=== PATIENT | male | born 1955 | race American Indian/Alaskan Native ===

== ENCOUNTER 2017-07-16 12:30 | Inpatient (IN) | payer MEDICARE ==
[2017-07-16] MEDS ORDERED: NACL 0.9% 1000 ML 1,000 ML IV ONE ×2 (13:35→14:06)
[2017-07-16] MEDS ORDERED: NACL 0.9% 1000 ML 1,000 ML ONE (13:37)
[2017-07-16] MEDS ORDERED: MORPHINE IV ONE ×2 (14:21→16:26)
[2017-07-16] MEDS ORDERED: ZOFRAN IV ONE (14:21)
--- NOTE | 2017-07-16 14:25 | Emergency Department Report ---
ED GI Bleed HPI - General Chief complaint: GI Bleed Stated complaint: ABD PAIN Time Seen by Provider: 07/16/17 13:55 Source: patient, EMS Mode of arrival: Wheelchair Limitations: No Limitations - History of Present Illness Initial comments: Patient is 62 years old male history of diabetes Jonas today with rectal bleeding for the last 2 days and a low blood pressure over 77/42. Patient stated that he's been having blood per rectum for the last 2 days associated with epigastric abdominal pain. Patient denied any vomiting blood. He stated that he does not remember the last time he had a colonoscopy or endoscopy. Denied any recent use of NSAID. MD complaint: blood on toilet paper -: days(s) Location: epigastric Quality: cramping Consistency: intermittent Associated Symptoms: abdominal pain - Related Data Home Medications Medication Instructions Recorded Confirmed Last Taken Acetaminophen [Acetaminophen TAB] 500 mg PO BID PRN 09/05/14 07/16/17 04/11/16 09:00 oxyCODONE /ACETAMINOPHEN 10 mg PO BID PRN 04/13/16 07/16/17 Unknown Aspirin 81 mg PO DAILY 04/25/17 07/16/17 04/25/17 AtorvaSTATin 1 tab PO DAILY 04/25/17 07/16/17 04/25/17 Clopidogrel [Plavix] 75 mg PO QDAY 04/25/17 07/16/17 Unknown Famotidine [Pepcid] 20 mg PO BID 04/25/17 07/16/17 Unknown Gabapentin [Gralise] 300 mg PO DAILY 04/25/17 07/16/17 04/25/17 Insulin Glargine,Hum.rec.anlog 24 unit SQ DAILY 04/25/17 07/16/17 Unknown [Lantus Solostar] Isosorbide Mononitrate 30 mg PO DAILY 04/25/17 07/16/17 Unknown Levothyroxine [Synthroid] 25 mcg PO QAM 04/25/17 07/16/17 Unknown Lisinopril [Zestril TAB] 10 mg PO QDAY 04/25/17 07/16/17 Unknown Nitroglycerin [Nitrostat] 0.4 mg SL PRN PRN 04/25/17 07/16/17 Unknown glipiZIDE [Glucotrol] 10 mg PO QDAY 09/04/17 11/25/17 Unknown Previous Rx's Medication Instructions Recorded Last Taken Type Ondansetron [Zofran Odt] 8 mg PO TID PRN #14 tab.rapdis 09/05/14 04/11/16 09:00 Rx ALBUTEROL Inhaler [ProAir HFA 2 puff IH QID PRN #1 inhalation 09/10/14 04/11/16 09:00 Rx Inhaler] Aspirin [Aspirin BABY CHEW TAB] 81 mg PO QDAY #30 tab.chew 09/10/14 04/11/16 09: 00 Rx Budesoni/Formotero 160-4.5(Nf) 2 puff IH BID #1 inha 09/10/14 04/11/16 09:00 Rx [Symbicort 160-4.5 (Nf)] Clopidogrel [Plavix] 75 mg PO QDAY #30 tablet 09/10/14 04/11/16 09:00 Rx Isosorbide Mononitrate [Isosorbide 60 mg PO QDAY #30 tab.er.24h 09/10/14 09:00 Rx Mononitrate ER (IMDUR)] Metoprolol [Lopressor TAB] 25 mg PO BID #60 tablet 09/10/14 04/11/16 09:00 Rx Rosuvastatin (Nf) [Crestor] 20 mg PO QHS #30 tablet 09/10/14 04/11/16 09:00 Rx Omeprazole [PriLOSEC] 20 mg PO BID #60 capsule. 09/21/14 04/11/16 09:00 Rx Pen Needle, Diabetic [Pen Needle] 1 each HS #100 dis.needle 04/14/16 Unknown Rx AtorvaSTATin [Lipitor] 40 mg PO QHS tablet 04/27/17 Unknown Rx Gabapentin [Neurontin] 300 mg PO DAILY capsule 04/27/17 Unknown Rx Insulin Detemir [Levemir] 30 units SUB-Q QHS units 04/27/17 Unknown Rx Insulin Glargine,Hum.rec.anlog 30 units SQ QHS #5 pen 04/27/17 Unknown Rx [Lantus Solostar] Insulin Regular, Human [HumuLIN R] 0 units SUB-Q ACHS units 04/27/17 Unknown Rx Pantoprazole [Protonix TAB] 20 mg PO BID tablet. 04/27/17 Unknown Rx oxyCODONE /ACETAMINOPHEN [Percocet 1 tab PO Q6HR PRN #14 tablet 04/27/17 Unknown Rx 5/325] Allergies Allergy/AdvReac Type Severity Reaction Status Date / Time No Known Allergies Allergy Verified 09/07/14 06:49 ED Review of Systems ROS: Stated complaint: ABD PAIN Other details as noted in HPI Comment: All other systems reviewed and negative Constitutional: denies: chills, fever ENT: denies: throat pain Cardiovascular: denies: chest pain, palpitations, dyspnea on exertion, orthopnea Gastrointestinal: abdominal pain, hematochezia. denies: nausea, vomiting, diarrhea, constipation, hematemesis, melena Neurological: denies: headache, weakness, numbness, paresthesias ED Past Medical Hx - Past Medical History Hx Hypertension: Yes Hx CVA: Yes (unknown) Hx Heart Attack/AMI: Yes Hx Congestive Heart Failure: No Hx Diabetes: Yes Hx Deep Vein Thrombosis: No Hx Pulmonary Embolism: No Hx GERD: Yes Hx Liver Disease: No Hx Renal Disease: No Hx Sickle Cell Disease: No Hx Arthritis: No Hx Headaches / Migraines: No Hx Seizures: No Hx Kidney Stones: No Hx Psychiatric Treatment: No Hx Asthma: Yes Hx COPD: Yes Hx Tuberculosis: No Hx Dementia: No Hx HIV: No Additional medical history: high cholest, CAD, gastritis, recurrent abdominal pain - Surgical History Hx Coronary Stent: Yes Hx Open Heart Surgery: Yes Hx Pacemaker: No Hx Internal Defibrillator: No Hx Cholecystectomy: No Hx Appendectomy: No Hx Breast Surgery: No Additional Surgical History: hernia surg x 3, peptic ulcer disease surgery - Social History Smoking Status: Current Every Day Smoker - Medications Home Medications: Home Medications Medication Instructions Recorded Confirmed Last Taken Type Acetaminophen [Acetaminophen TAB] 500 mg PO BID PRN 09/05/14 07/16/17 04/11/16 09:00 History Ondansetron [Zofran Odt] 8 mg PO TID PRN #14 tab.rapdis 09/05/14 07/16/17 09:00 Rx ALBUTEROL Inhaler [ProAir HFA 2 puff IH QID PRN #1 inhalation 09/10/14 07/16/17 04/11/16 09:00 Rx Inhaler] Aspirin [Aspirin BABY CHEW TAB] 81 mg PO QDAY #30 tab.chew 09/10/14 07/16/1716 09:00 Rx Budesoni/Formotero 160-4.5(Nf) 2 puff IH BID #1 inha 09/10/14 07/16/17 04/11/16 09:00 Rx [Symbicort 160-4.5 (Nf)] Clopidogrel [Plavix] 75 mg PO QDAY #30 tablet 09/10/14 07/16/17 04/11/16 09:00 Rx Isosorbide Mononitrate [Isosorbide 60 mg PO QDAY #30 tab.er.24h 09/10/1404/11/16 09:00 Rx Mononitrate ER (IMDUR)] Metoprolol [Lopressor TAB] 25 mg PO BID #60 tablet 09/10/14 07/16/17 04/11/16 09 :00 Rx Rosuvastatin (Nf) [Crestor] 20 mg PO QHS #30 tablet 09/10/14 07/16/17 04/11/16 09:00 Rx Omeprazole [PriLOSEC] 20 mg PO BID #60 capsule.dr 09/21/14 07/16/17 04/11/16 09: 00 Rx oxyCODONE /ACETAMINOPHEN 10 mg PO BID PRN 04/13/16 07/16/17 Unknown History Pen Needle, Diabetic [Pen Needle] 1 each HS #100 dis.needle 04/14/16 Unknown Rx Aspirin 81 mg PO DAILY 04/25/17 07/16/17 04/25/17 History AtorvaSTATin 1 tab PO DAILY 04/25/17 07/16/17 04/25/17 History Clopidogrel [Plavix] 75 mg PO QDAY 04/25/17 07/16/17 Unknown History Famotidine [Pepcid] 20 mg PO BID 04/25/17 07/16/17 Unknown History Gabapentin [Gralise] 300 mg PO DAILY 04/25/17 07/16/17 04/25/17 History Insulin Glargine,Hum.rec.anlog 24 unit SQ DAILY 04/25/17 07/16/17 Unknown History [Lantus Solostar] Isosorbide Mononitrate 30 mg PO DAILY 04/25/17 07/16/17 Unknown History Levothyroxine [Synthroid] 25 mcg PO QAM 04/25/17 07/16/17 Unknown History Lisinopril [Zestril TAB] 10 mg PO QDAY 04/25/17 07/16/17 Unknown History Nitroglycerin [Nitrostat] 0.4 mg SL PRN PRN 04/25/17 07/16/17 Unknown History glipiZIDE [Glucotrol] 10 mg PO QDAY 04/25/17 07/16/17 Unknown History AtorvaSTATin [Lipitor] 40 mg PO QHS tablet 04/27/17 07/16/17 Unknown Rx Gabapentin [Neurontin] 300 mg PO DAILY capsule 04/27/17 07/16/17 Unknown Rx Insulin Detemir [Levemir] 30 units SUB-Q QHS units 04/27/17 07/16/17 Unknown Rx Insulin Glargine,Hum.rec.anlog 30 units SQ QHS #5 pen 04/27/17 07/16/17 Unknown Rx [Lantus Solostar] Insulin Regular, Human [HumuLIN R] 0 units SUB-Q ACHS units 04/27/17 07/16/17 Unknown Rx Pantoprazole [Protonix TAB] 20 mg PO BID tablet. 04/27/17 07/16/17 Unknown Rx oxyCODONE /ACETAMINOPHEN [Percocet 1 tab PO Q6HR PRN #14 tablet 04/27/17 Unknown Rx 5/325] ED Physical Exam - General Limitations: No Limitations General appearance: alert, in no apparent distress - Head Head exam: Present: atraumatic, normocephalic - Eye Eye exam: Present: normal appearance, PERRL - ENT ENT exam: Present: mucous membranes dry - Neck Neck exam: Present: normal inspection, full ROM. Absent: tenderness, meningismus - Respiratory Respiratory exam: Present: normal lung sounds bilaterally. Absent: respiratory distress, wheezes, rales, rhonchi, stridor, accessory muscle use - Cardiovascular Cardiovascular Exam: Present: tachycardia - GI/Abdominal GI/Abdominal exam: Present: soft, tenderness (epigastric), normal bowel sounds. Absent: distended, guarding, rigid, diminished bowel sounds, organomegaly, mass, bruit, pulsatile mass, hernia - Rectal Rectal exam: Present: normal inspection, normal rectal tone, heme (+) stool. Absent: black stool, bloody stool, fecal impaction, hemorrhoids, mass, tenderness - Extremities Exam Extremities exam: Present: normal inspection, normal capillary refill. Absent: full ROM, tenderness, pedal edema, joint swelling, calf tenderness - Back Exam Back exam: Present: normal inspection. Absent: CVA tenderness (R), CVA tenderness (L), muscle spasm, paraspinal tenderness, vertebral tenderness - Neurological Exam Neurological exam: Present: alert, oriented X3, CN II-XII intact, normal gait. Absent: abnormal gait, motor sensory deficit, reflexes normal - Skin Skin exam: Present: warm, dry, intact ED Course Vital Signs 07/16/17 07/16/17 07/16/17 13:29 13:37 13:45 Temperature 98.4 F Pulse Rate 103 H 97 H 94 H Respiratory 18 19 15 Rate Blood Pressure 70/44 96/60 88/61 Blood Pressure [Left] O2 Sat by Pulse 100 98 Oximetry 07/16/17 07/16/17 07/16/17 14:00 14:15 16:26 Temperature Pulse Rate 85 80 74 Respiratory 14 18 16 Rate Blood Pressure 94/60 112/68 Blood Pressure 125/80 [Left] O2 Sat by Pulse 100 96 Oximetry - Reevaluation(s) Reevaluation #1: 07/16/17 16:46 Patient stating that he is feeling better his blood pressure improved significantly currently is 120/80. ED Medical Decision Making - Lab Data Result diagrams: 07/16/17 14:10 07/16/17 14:10 - Medical Decision Making Discussed the patient with Dr. Kareem Morales from [facility]-he advised to admit the patient to the hospitalist and he will follow up with the patient. Discussed with Dr. Jaime presented the patient to him he agreed to admit the patient to his service. Critical Care Time: Yes Critical care time in (mins) excluding proc time.: 35 Critical care attestation.: If time is entered above; I have spent that time in minutes in the direct care of this critically ill patient, excluding procedure time. ED Disposition Clinical Impression: GI bleed Abdominal pain Qualifiers: Abdominal location: lower abdomen, unspecified Qualified Code(s): R10.30 - Lower abdominal pain, unspecified Disposition: OP ADMIT IP TO THIS HOSP Is pt being admited?: Yes Condition: Stable Referrals: PRIMARY CARE, [Primary Care Provider] - 3-5 Days Forms: Accompanied Note
[2017-07-16 14:46] LABS: Basophils % (Auto) 0.7 % (0.0-1.8); Eosinophils % (Auto) 2.3 % (0.0-4.3); Hematocrit 38.1 % (35.5-45.6); Hemoglobin 12.7 gm/dl (11.8-15.2); Mean Corpuscular HGB Conc 33 % (32-34); Mean Corpuscular Hemoglobin 29 pg (28-32); Mean Corpuscular Volume 88 fl (84-94); Platelet Count 255 K/mm3 (140-440); Red Blood Count 4.32 M/mm3 (3.65-5.03); Red Cell Distribution Width 14.2 % (13.2-15.2); White Blood Count 5.5 K/mm3 (4.5-11.0)
[2017-07-16 14:50] LABS: Alanine Aminotransferase 9 units/L (7-56); Albumin 3.8 g/dL (3.9-5); Alkaline Phosphatase 63 units/L (35-129); Anion Gap 20 mmol/L; BUN/Creatinine Ratio 11; Blood Urea Nitrogen 15 mg/dL (9-20); Calcium 9.2 mg/dL (8.4-10.2); Carbon Dioxide 23 mmol/L (22-30); Chloride 94.5 mmol/L (98-107); Glucose 244 mg/dL (75-100); Lipase 36 units/L (13-60); Potassium 4.2 mmol/L (3.6-5.0); Sodium 133 mmol/L (137-145); Total Protein 7.7 g/dL (6.3-8.2)
[2017-07-16 14:56] LABS: INR 1.03 (0.87-1.13)
[2017-07-16 14:57] LABS: Partial Thromboplastin Time 31.3 Sec. (24.2-36.6)
--- NOTE | 2017-07-16 16:33 | History and Physical Report ---
History of Present Illness Chief complaint: my stomach hurts, and I have blood in my stool History of present illness: 62 YO Male with HTN, HI, DM, GERD, Asthma, COPD, HLD, Nicotine Dependence, CAD S /P CABG, Stent placement, Metabolic Syndrome, PUD, Gastritis presents to ED for evaluation. Pt states that he has experienced abdominal pain and rectal bleeding for the past 2 days, with persistent symptoms over the same time period. Pt states that pain in 3-5/10, epigastric in location, intermittent, cramping, nonradiating, and is associated with nausea, but denies vomiting and diarrhea but acknkowledges blood in his stool. Pt seen and evaluated in ED and found to have a blood pressure of 77/42, and was treated with supportive care, IVF, with normalization of blood pressure. PT denies fever, chills, CP, Palpitations, Trauma, NSAID use, unintentional weight loss, night sweats, bone pain, pain upon swallowing, or recent ill contacts. GI consulted in ED Past History Past Medical History: acute HI, CAD, diabetes, hypertension, hyperlipidemia, other (PUD) Past Surgical History: CABG, hernia repair, Other (Stent, PUD surgery) Social history: single, smoking. denies: alcohol abuse, prescription drug abuse , IV drug use Family history: diabetes, hypertension Medications and Allergies Allergies Allergy/AdvReac Type Severity Reaction Status Date / Time No Known Allergies Allergy Verified 09/07/14 06:49 Home Medications Medication Instructions Recorded Confirmed Last Taken Type Acetaminophen [Acetaminophen TAB] 500 mg PO BID PRN 09/05/14 07/16/17 04/11/16 09:00 History Ondansetron [Zofran Odt] 8 mg PO TID PRN #14 tab.rapdis 09/05/14 07/16/17 09:00 Rx ALBUTEROL Inhaler [ProAir HFA 2 puff IH QID PRN #1 inhalation 09/10/14 07/16/17 04/11/16 09:00 Rx Inhaler] Aspirin [Aspirin BABY CHEW TAB] 81 mg PO QDAY #30 tab.chew 09/10/14 07/16/17 09:00 Rx Budesoni/Formotero 160-4.5(Nf) 2 puff IH BID #1 inha 09/10/14 07/16/17 04/11/16 09:00 Rx [Symbicort 160-4.5 (Nf)] Clopidogrel [Plavix] 75 mg PO QDAY #30 tablet 09/10/14 07/16/17 04/11/16 09:00 Rx Isosorbide Mononitrate [Isosorbide 60 mg PO QDAY #30 tab.er.24h 09/10/1404/11/16 09:00 Rx Mononitrate ER (IMDUR)] Metoprolol [Lopressor TAB] 25 mg PO BID #60 tablet 09/10/14 07/16/17 04/11/16 09 :00 Rx Rosuvastatin (Nf) [Crestor] 20 mg PO QHS #30 tablet 09/10/14 07/16/17 04/11/16 09:00 Rx Omeprazole [PriLOSEC] 20 mg PO BID #60 capsule. 09/21/14 07/16/17 04/11/16 09: 00 Rx oxyCODONE /ACETAMINOPHEN 10 mg PO BID PRN 04/13/16 07/16/17 Unknown History Pen Needle, Diabetic [Pen Needle] 1 each HS #100 dis.needle 04/14/16 Unknown Rx Aspirin 81 mg PO DAILY 04/25/17 07/16/17 04/25/17 History AtorvaSTATin 1 tab PO DAILY 04/25/17 07/16/17 04/25/17 History Clopidogrel [Plavix] 75 mg PO QDAY 04/25/17 07/16/17 Unknown History Famotidine [Pepcid] 20 mg PO BID 04/25/17 07/16/17 Unknown History Gabapentin [Gralise] 300 mg PO DAILY 04/25/17 07/16/17 04/25/17 History Insulin Glargine,Hum.rec.anlog 24 unit SQ DAILY 04/25/17 07/16/17 Unknown History [Lantus Solostar] Isosorbide Mononitrate 30 mg PO DAILY 04/25/17 07/16/17 Unknown History Levothyroxine [Synthroid] 25 mcg PO QAM 04/25/17 07/16/17 Unknown History Lisinopril [Zestril TAB] 10 mg PO QDAY 04/25/17 07/16/17 Unknown History Nitroglycerin [Nitrostat] 0.4 mg SL PRN PRN 04/25/17 07/16/17 Unknown History glipiZIDE [Glucotrol] 10 mg PO QDAY 04/25/17 07/16/17 Unknown History AtorvaSTATin [Lipitor] 40 mg PO QHS tablet 04/27/17 07/16/17 Unknown Rx Gabapentin [Neurontin] 300 mg PO DAILY capsule 04/27/17 07/16/17 Unknown Rx Insulin Detemir [Levemir] 30 units SUB-Q QHS units 04/27/17 07/16/17 Unknown Rx Insulin Glargine,Hum.rec.anlog 30 units SQ QHS #5 pen 04/27/17 07/16/17 Unknown Rx [Lantus Solostar] Insulin Regular, Human [HumuLIN R] 0 units SUB-Q ACHS units 04/27/17 07/16/17 Unknown Rx Pantoprazole [Protonix TAB] 20 mg PO BID tablet. 04/27/17 07/16/17 Unknown Rx oxyCODONE /ACETAMINOPHEN [Percocet 1 tab PO Q6HR PRN #14 tablet 04/27/17 Unknown Rx 5/325] Active Meds: Active Medications Sodium Chloride (Nacl 0.9% 1000 Ml) 1,000 mls @ 250 mls/hr IV ONCE ONE Stop: 07/16/17 17:34 Last Admin: 07/16/17 13:50 Dose: 250 mls/hr Review of Systems Constitutional: no weight loss, no weight gain, no fever, no chills, no night sweats, no fatigue, no weakness, no malaise Ears, nose, mouth and throat: no ear pain, no ear discharge, no tinnitis, no decreased hearing, no nose pain, no nasal congestion, no nasal discharge Cardiovascular: no chest pain, no orthopnea, no palpitations, no rapid/ irregular heart beat, no edema, no syncope, no lightheadedness Respiratory: no cough, no cough with sputum, no excessive sputum, no hemoptysis , no shortness of breath Gastrointestinal: abdominal pain, nausea, BRBPR, no diarrhea, no constipation, no change in bowel habits Genitourinary Male: no hematuria, no flank pain, no discharge, no urinary frequency, no urinary hesitancy Rectal: bleeding, no pain, no incontinence Musculoskeletal: no neck stiffness, no neck pain, no shooting arm pain, no arm numbness/tingling, no low back pain, no shooting leg pain, no leg numbness/ tingling Integumentary: no rash, no pruritis, no redness, no sores, no wounds, no jaundice Neurological: no transient paralysis, no paralysis, no weakness, no parathesias , no numbness, no tingling, no seizures Psychiatric: no anxiety, no memory loss, no change in sleep habits, no sleep disturbances, no insomnia, no hypersomnia, no change in appetite Endocrine: no cold intolerance, no heat intolerance, no polyphagia, no excessive thirst, no polydipsia, no polyuria, no nocturia Hematologic/Lymphatic: no easy bruising, no easy bleeding Allergic/Immunologic: no urticaria, no allergic rhinitis, no wheezing Exam - Constitutional Vitals: Temp Pulse Resp BP Pulse Ox 98.4 F 74 16 125/80 96 07/16/17 13:29 07/16/17 16:26 07/16/17 16:26 07/16/17 16:26 07/16/17 16:26 General appearance: Present: mild distress - EENT Eyes: Present: PERRL ENT: hearing intact, clear oral mucosa - Neck Neck: Present: supple, normal ROM - Respiratory Respiratory effort: normal Respiratory: bilateral: CTA - Cardiovascular Heart Sounds: Present: S1 & S2. Absent: rub, click - Extremities Extremities: pulses symmetrical, No edema Peripheral Pulses: within normal limits - Abdominal General gastrointestinal: Present: soft, non-tender, non-distended, normal bowel sounds Male genitourinary: Present: normal - Integumentary Integumentary: Present: clear, warm, dry - Musculoskeletal Musculoskeletal: gait normal, strength equal bilaterally - Psychiatric Psychiatric: appropriate mood/affect, intact judgment & insight - Neurologic Neurologic: CNII-XII intact, moves all extremities Results - Labs CBC & Chem 7: 07/16/17 14:10 07/16/17 14:10 Labs: Abnormal lab results 07/16/17 07/16/17 07/16/17 Range/Units 13:54 14:10 14:10 [place] % (Auto) 10.4 H (0.0-7.3) % Sodium 133 L (137-145) mmol/L Chloride 94.5 L (98-107) mmol/L Glucose 244 H (75-100) mg/dL POC Glucose 236 H (70-105) Albumin 3.8 L (3.9-5) g/dL Assessment and Plan - Patient Problems (1) GI bleed Current Visit: Yes Status: Acute Qualifiers: GI bleed type/associated pathology: anorectal hemorrhage Qualified Code(s) : K62.5 - Hemorrhage of anus and rectum Plan to address problem: GI consulted in ED, IV PPI therapy, serial CBC, HGB currently stable, No transfusion at this time. Will transfuse if HGB drops by 2grams or more at any given time, (2) CAD (coronary artery disease) Current Visit: Yes Status: Acute Plan to address problem: No angina at this time, telemetry monitoring, statin therapy, low cholesterol diet, hold antiplatelet therapy at this time. (3) Diabetes Current Visit: Yes Status: Acute Plan to address problem: ADA diet, insulin, accu check (4) Hyperlipidemia Current Visit: No Status: Chronic Plan to address problem: Continue statin therapy, supportive care. (5) DVT prophylaxis Current Visit: Yes Status: Acute Plan to address problem: SCD to BLE,
[2017-07-16] MEDS ORDERED: TYLENOL PO PRN (16:36)
[2017-07-16] MEDS ORDERED: MILK OF MAGNESIA PO PRN (16:36)
[2017-07-16] MEDS ORDERED: PROVENTIL IH PRN (16:36)
[2017-07-16] MEDS ORDERED: DULCOLAX PR PRN (16:36)
[2017-07-16] MEDS ORDERED: NACL ONE (17:25)
--- NOTE | 2017-07-16 19:12 | Cat Scan Report ---
FINAL REPORT EXAM: CT ABDOMEN PELVIS W CON HISTORY: ab pain TECHNIQUE: Standard enhanced CT of the abdomen and pelvis. Delayed imaging through the kidneys and bladder was obtained. Coronal and sagittal reconstruction was also performed. Contrast: 100 mL Omnipaque 300 given IV. Readi-Cat given as oral. PRIORS: CT a/P 04/25/2017 FINDINGS: Within the abdomen, the liver, spleen, pancreas, gallbladder, adrenal glands, and kidneys are unremarkable. No evidence for retroperitoneal or pelvic lymphadenopathy is seen. The bowel loops have normal caliber. No soft tissue mass, fluid collection, inflammatory change, or free air is seen within the abdomen or pelvis. The appendix is not visualized. Mild calcification of the aorta is seen. Within the pelvis, the bladder demonstrates abnormal wall thickening of the anterior aspect, more thickened than seen previously this now measures up to 8 mm. Bilateral ureteral jets are visualized on delayed imaging. The prostate is normal. No evidence for mass or lymphadenopathy is seen in the pelvis. Bilateral inguinal hernias contain only fat. Images through the upper abdomen include the lung bases which are expanded and clear. Bony structures show a stable spondylolysis at L4. Bilateral facet joint hypertrophic changes at L4-L5 are noted. There is a mild, grade 1, anterolisthesis of L4 on L5, stable. Severe disc space narrowing L4-L5 and L5-S1 is present. Degenerative disc narrowing at L1-L2 is again noted. IMPRESSION: 1. Abnormal wall thickening of the urinary bladder again noted. Neoplasm, bladder outlet obstruction, or cystitis is suspected. 2. Bilateral inguinal hernias contain only fat. 3. Degenerative changes in the lower lumbar spine with a spondylolysis of L4 again noted.
[2017-07-16] MEDS: MORPHINE IV PRN (21:29)
[2017-07-16] MEDS: NOVOLOG SUB-Q SCH (23:57)
[2017-07-16] MEDS: PROTONIX IV SCH (23:58)
[2017-07-17] MEDS: MORPHINE IV PRN ×6 (02:13→23:38)
[2017-07-17] MEDS: ZOFRAN IV PRN (02:14)
[2017-07-17] MEDS ORDERED: APRESOLINE IV PRN (06:47)
[2017-07-17] MEDS: NOVOLOG SUB-Q SCH ×4 (09:36→21:39)
[2017-07-17] MEDS: PROTONIX IV SCH ×2 (10:34→21:39)
[2017-07-17 11:08] LABS: Hematocrit 39.5 % (35.5-45.6); Hemoglobin 12.8 gm/dl (11.8-15.2); Mean Corpuscular HGB Conc 33 % (32-34); Mean Corpuscular Hemoglobin 29 pg (28-32); Mean Corpuscular Volume 88 fl (84-94); Platelet Count 278 K/mm3 (140-440); Red Blood Count 4.48 M/mm3 (3.65-5.03); Red Cell Distribution Width 14.2 % (13.2-15.2); White Blood Count 5.5 K/mm3 (4.5-11.0)
[2017-07-17 11:22] LABS: Anion Gap 16 mmol/L; BUN/Creatinine Ratio 11; Blood Urea Nitrogen 10 mg/dL (9-20); Calcium 9.6 mg/dL (8.4-10.2); Carbon Dioxide 29 mmol/L (22-30); Chloride 95.2 mmol/L (98-107); Glucose 233 mg/dL (75-100); Potassium 5.1 mmol/L (3.6-5.0); Sodium 135 mmol/L (137-145)
[2017-07-17] MEDS ORDERED: D50W (25GM) Vial IV STA (15:12)
--- NOTE | 2017-07-17 17:28 | Progress Note ---
Assessment and Plan Assessment and plan: Acute GI bleed. Patient admitted to [facility] H/H serially. GI Physician consulted. Protonix. Hold Plavix Coronary arterty disease. Plavix on hold because of GI bleed Diabetes mellitus type 2. Check fingerstick Qac and hs hypertension. On IMdur. Lisinopril on hold because of hyperkalemia Hyperlipidemia Hyperkalemia. Hold Lisinopril, recheck Full code status History Interval history: blood in stool Hospitalist Physical - Physical exam Narrative exam: GEN APPEARANCE : Not in acute distress HEENT: Normocephalic Atraumatic NECK : supple, no JVD LUNGS: clear to auscultation bilaterally, no rales, no wheeze HEART: S1 and S2 regular, tachycardia, no murmurs, rubs or gallop, ABD: Soft, no tenderness, no distension, normal bowel sounds EXT: No edema, no clubbing, no cyanosis NEURO: Awake,alert,oriented x 3, no facial asymmetry,no focal signs - Constitutional Vitals: Temp Pulse Resp BP Pulse Ox 97.9 F 77 20 147/101 98 07/17/17 04:39 07/17/17 04:39 07/17/17 14:47 07/17/17 06:34 07/17/17 07:52 Results - Labs CBC & Chem 7: 07/18/17 05:04 07/18/17 05:04 Labs: Laboratory Last Values WBC 5.5 K/mm3 (4.5-11.0) 07/17/17 10:53 RBC 4.48 M/mm3 (3.65-5.03) 07/17/17 10:53 Hgb 12.8 gm/dl (11.8-15.2) 07/17/17 10:53 Hct 39.5 % (35.5-45.6) 07/17/17 10:53 MCV 88 fl (84-94) 07/17/17 10:53 MCH 29 pg (28-32) 07/17/17 10:53 MCHC 33 % (32-34) 07/17/17 10:53 RDW 14.2 % (13.2-15.2) 07/17/17 10:53 Plt Count 278 K/mm3 (140-440) 07/17/17 10:53 Lymph % (Auto) 26.6 % (13.4-35.0) 07/16/17 14:10 [place] % (Auto) 10.4 % (0.0-7.3) H 07/16/17 14:10 Eos % (Auto) 2.3 % (0.0-4.3) 07/16/17 14:10 Baso % (Auto) 0.7 % (0.0-1.8) 07/16/17 14:10 Lymph # 1.5 K/mm3 (1.2-5.4) 07/16/17 14:10 [place] # 0.6 K/mm3 (0.0-0.8) 07/16/17 14:10 Eos # 0.1 K/mm3 (0.0-0.4) 07/16/17 14:10 Baso # 0.0 K/mm3 (0.0-0.1) 07/16/17 14:10 Seg Neutrophils % 60.0 % (40.0-70.0) 07/16/17 14:10 Seg Neutrophils # 3.3 K/mm3 (1.8-7.7) 07/16/17 14:10 PT 14.0 Sec. (12.2-14.9) 07/16/17 14:10 INR 1.03 (0.87-1.13) 07/16/17 14:10 APTT 31.3 Sec. (24.2-36.6) 07/16/17 14:10 Sodium 135 mmol/L (137-145) L 07/17/17 10:53 Potassium 5.1 mmol/L (3.6-5.0) H D 07/17/17 10:53 Chloride 95.2 mmol/L (98-107) L 07/17/17 10:53 Carbon Dioxide 29 mmol/L (22-30) 07/17/17 10:53 Anion Gap 16 mmol/L 07/17/17 10:53 BUN 10 mg/dL (9-20) 07/17/17 10:53 Creatinine 0.9 mg/dL (0.8-1.5) 07/17/17 10:53 Estimated GFR > 60 ml/min 07/17/17 10:53 BUN/Creatinine Ratio 11 % 07/17/17 10:53 Glucose 233 mg/dL (75-100) H 07/17/17 10:53 POC Glucose 212 (70-105) H 07/17/17 12:05 Calcium 9.6 mg/dL (8.4-10.2) 07/17/17 10:53 Total Bilirubin 0.30 mg/dL (0.1-1.2) 07/16/17 14:10 AST 11 units/L (5-40) 07/16/17 14:10 ALT 9 units/L (7-56) 07/16/17 14:10 Alkaline Phosphatase 63 units/L (35-129) 07/16/17 14:10 Total Protein 7.7 g/dL (6.3-8.2) 07/16/17 14:10 Albumin 3.8 g/dL (3.9-5) L 07/16/17 14:10 Albumin/Globulin Ratio 1.0 % 07/16/17 14:10 Lipase 36 units/L (13-60) 07/16/17 14:10 Blood Type O POSITIVE 07/16/17 14:10 Antibody Screen Negative 07/16/17 14:10
[2017-07-17] MEDS ORDERED: TYLENOL PO PRN (17:30)
[2017-07-17] MEDS ORDERED: PROAIR IH PRN (17:30)
[2017-07-17] MEDS ORDERED: NITROSTAT SL PRN (17:30)
[2017-07-17] MEDS ORDERED: GOLYTELY PO ONE (18:00)
[2017-07-17] MEDS: IMDUR PO SCH (18:32)
[2017-07-17] MEDS: NEURONTIN PO SCH (21:38)
[2017-07-17] MEDS ORDERED: NON-FORMULARY (Budesoni/Formotero 160-4.5(Nf) 2 PUFF) IH SCH (22:00)
[2017-07-17] MEDS: BROVANA NEBU IH SCH (22:13)
[2017-07-17] MEDS: PULMICORT IH SCH (22:13)
[2017-07-18] MEDS: MORPHINE IV PRN ×5 (03:40→22:09)
[2017-07-18] MEDS: ZOFRAN IV PRN (03:40)
[2017-07-18 05:39] LABS: Hematocrit 37.7 % (35.5-45.6); Hemoglobin 12.4 gm/dl (11.8-15.2); Mean Corpuscular HGB Conc 33 % (32-34); Mean Corpuscular Hemoglobin 29 pg (28-32); Mean Corpuscular Volume 88 fl (84-94); Platelet Count 246 K/mm3 (140-440); Red Blood Count 4.27 M/mm3 (3.65-5.03); Red Cell Distribution Width 14.3 % (13.2-15.2); White Blood Count 5.2 K/mm3 (4.5-11.0)
[2017-07-18 05:57] LABS: Anion Gap 19 mmol/L; BUN/Creatinine Ratio 10; Blood Urea Nitrogen 9 mg/dL (9-20); Carbon Dioxide 27 mmol/L (22-30); Chloride 93.8 mmol/L (98-107); Glucose 194 mg/dL (75-100); Potassium 4.4 mmol/L (3.6-5.0); Sodium 135 mmol/L (137-145)
[2017-07-18] MEDS: SYNTHROID PO SCH (06:40)
[2017-07-18] MEDS: NOVOLOG SUB-Q SCH ×3 (07:30→16:45)
[2017-07-18] MEDS: BROVANA NEBU IH SCH ×2 (08:00→20:43)
[2017-07-18] MEDS: PULMICORT IH SCH ×2 (08:00→20:43)
[2017-07-18] MEDS ORDERED: NACL 0.9% 1000 ML 1,000 ML IV SCH (08:00)
--- NOTE | 2017-07-18 08:05 | Anesthesia Consultation ---
Anesthesia Consult and Med Hx Date of service: 07/18/17 - Airway Anesthetic Teeth Evaluation: Poor (missing multiple front teeth, none loose per pt) ROM Head & Neck: Adequate Mental/Hyoid Distance: Adequate Mallampati Class: Class III Intubation Access Assessment: Possibly Difficult - Pulmonary Exam CTA: Yes - Cardiac Exam Cardiac Exam: RRR - Pre-Operative Health Status ASA Pre-Surgery Classification: ASA3 Proposed Anesthetic Plan: MAC - Pulmonary Hx Smoking: Yes (1 pq3d since 10 yrs old) Hx Asthma: Yes (inhaler prn, last used 1 week ago) - Cardiovascular System Hx Hypertension: Yes Hx Coronary Artery Disease: Yes Hx Heart Attack/AMI: Yes (6 yrs ago sp CABG) Hx Percutaneous Transluminal Coronary Angioplasty (PTCA): Yes - Central Nervous System Hx Seizures: No CVA: No (denies per pt, rt eye drooping) Hx Psychiatric Problems: No - Gastrointestinal Hx Gastroesophageal Reflux Disease: Yes - Endocrine Hx Renal Disease: No Hx Liver Disease: No Hx Hypothyroidism: Yes - Hematic Hx Sickle Cell Disease: No - Additional Comments Anesthesia Medical History Comments: NAC
--- NOTE | 2017-07-18 08:05 | Anesthesia Day of Surgery ---
Anesthesia Day of Surgery - Day of Surgery Patient Examined: Yes Patient H&P Reviewed: Yes Patient is NPO: Yes
[2017-07-18] MEDS ORDERED: WATER FOR IRRIG STERILE IR ONE (08:11)
--- NOTE | 2017-07-18 08:22 | Consultation ---
INDICATION: Rectal bleeding. HISTORY OF PRESENT ILLNESS: The patient is a 62-year-old black male with a history of hypertension, diabetes, GERD, asthma, COPD as well as coronary artery disease, status post CABG and stent placement as well as peptic ulcer disease in the past. The patient reports lower abdominal pain with rectal bleeding for the last 2 days. He reports bright red to maroon stools. He reports some nausea without vomiting. The patient also gives a history of some vague epigastric pain. Denies fevers or chills. Denies any weight loss. Denies family history of colon cancer. The patient reports last colonoscopy was over 10 years ago. Denies any other specific GI complaints. The patient subsequently came to the Emergency Room, where he was evaluated and managed and GI consulted. PAST MEDICAL HISTORY: 1. Coronary artery disease status post myocardial infarction. 2. Diabetes. 3. Hypertension. 4. High cholesterol. 5. Peptic ulcer disease. 6. Asthma. MEDICATIONS: See chart. ALLERGIES: No known drug allergies. SOCIAL HISTORY: Smoker. Denies alcohol. FAMILY HISTORY: Negative for colon cancer or liver disease. REVIEW OF SYSTEMS: GENERAL: Reports mild weakness. HEENT: No visual complaints or tinnitus. PULMONARY: No shortness of breath or cough. No chest pain. GASTROINTESTINAL: Reports lower abdominal pain. All points of 13-point review of systems otherwise negative. PHYSICAL EXAMINATION: VITAL SIGNS: Temperature of 97.9, pulse 77, respirations 18, and blood pressure 180/90. GENERAL: Fairly nourished male, in no acute distress. HEENT: Pupils are equal, round and reactive to light and accommodation. Extraocular muscles are intact. PULMONARY: Clear to auscultation bilaterally. CARDIOVASCULAR: Regular rhythm. Normal S1, S2. ABDOMEN: Positive bowel sounds, soft. SKIN: No obvious rashes. LABORATORY DATA: Pertinent for white count of 5.5, hemoglobin and hematocrit of 12.8 and 39.5, and platelet count of 278. Coags within normal limits. Chem-7 pertinent for sodium of 135, potassium 5.1, chloride 96, CO2 of 29, BUN and creatinine of 10 and 0.9. LFTs within normal limits. CT scan showed no obvious GI related pathology. ASSESSMENT AND PLAN: A 62-year-old black male with no recent colonoscopy, presents now with lower abdominal as well as a vague epigastric pain, with 2 days of rectal bleeding. H and H for the most part has been stable. He denies any other specific GI complaints. He reports he has not had any recent GI evaluation. PLAN: 1. Follow hematocrit and transfuse as needed. 2. PPI daily. 3. We will review CT scan. 4. Colonoscopy with possible EGD in a.m. 5. Further recommendation based on progress. JOB# [id number] [facility]/NT[facility]
[2017-07-18] MEDS ORDERED: DIPRIVAN 10 MG/ML IV ONE (08:37)
[2017-07-18] MEDS ORDERED: AMIDATE IV ONE (08:37)
--- NOTE | 2017-07-18 08:55 | Post Operative Note ---
Pre-op diagnosis: dyspepsia, gi bleed Post-op diagnosis: other (moderate amount of retained semi-liquid in stomach, otherwise no significant findings) Findings: retained liquid in gastric fundus/body, otherwise no significant findings Procedure: EGD Anesthesia: MAC Surgeon: LATONYA AGUAYO Estimated blood loss: none Pathology: none Condition: stable Disposition: floor
--- NOTE | 2017-07-18 08:59 | Operative Report ---
Operative Report Operative Report: EGD PROCEDURE NOTE DATE OF PROCEDURE: 07/18/2017 ENDOSCOPIST: LATONYA AGUAYO PRE-OP DIAGNOSIS: dyspepsia, h/o PUD, GI bleed POST-OP DIAGNOSIS: retained contents (semi-liquid) in stomach, otherwise unremarkable ANESTHESIA: MAC COMPLICATIONS: no immediate complications ESTIMATED BLOOD LOSS: none PROCEDURE: After consent was obtained, the patient was placed in the left lateral decubitus position. The fujinon endoscope was inserted into the patient's mouth under direct vision, and advanced to the 2nd portion of the duodenum without difficulty. The patient tolerated the procedure well. The views of the mucosa were fair. The patient's vital signs were monitored continuously throughout the procedure. FINDINGS: The Z-line was irregular. There was a small hiatal hernia. Otherwise, the esophagus appeared normal. There was a moderate amount of retained contents (semi-liquid) in the gastric fundus/body. This limited detailed views, however, the stomach appeared normal otherwise. The duodenum appeared normal. IMPRESSION: 1. Retained semi-liquid contents in gastric fundus/body, otherwise unremarkable EGD. RECOMMENDATIONS: -clear liquid diet today -prep again today for colonoscopy tomorrow
--- NOTE | 2017-07-18 09:17 | Post Anesthesia Evaluation ---
- Post Anesthesia Evaluation Patient Participated: Yes Airway Patent: Yes Stable Respiratory Function: Yes Temp > 96.8F: Yes Pain Manageable: Yes Adequeate Hydration: Yes Anesthesia Complications: No
--- NOTE | 2017-07-18 09:18 | Post Anesthesia Evaluation ---
- Post Anesthesia Evaluation Patient Participated: Yes Airway Patent: Yes Stable Respiratory Function: Yes Temp > 96.8F: Yes Pain Manageable: Yes Adequeate Hydration: Yes Anesthesia Complications: No
[2017-07-18] MEDS: IMDUR PO SCH (10:05)
--- NOTE | 2017-07-18 10:42 | Progress Note ---
Assessment and Plan Assessment and plan: Acute GI bleed. Patient admitted to [facility] H/H serially. EGD done tody, unremarkable. For colonoscopy tomorrow. Hold Plavix Coronary arterty disease, s/p CABG. Plavix on hold because of GI bleed Diabetes mellitus type 2. Check fingerstick Qac and hs hypertension. Continue Imdur. Lisinopril on hold because of hyperkalemia Hyperlipidemia Hyperkalemia, resolved. Full code status History Interval history: blood in stool, no chest pain Hospitalist Physical - Physical exam Narrative exam: GEN APPEARANCE : Not in acute distress HEENT: Normocephalic Atraumatic NECK : supple, no JVD LUNGS: clear to auscultation bilaterally, no rales, no wheeze HEART: S1 and S2 regular, tachycardia, no murmurs, rubs or gallop, ABD: Soft, no tenderness, no distension, normal bowel sounds EXT: No edema, no clubbing, no cyanosis NEURO: Awake,alert,oriented x 3, no facial asymmetry,no focal signs - Constitutional Vitals: Temp Pulse Resp BP Pulse Ox 97.6 F 101 H 15 116/83 95 07/18/17 08:58 07/18/17 09:28 07/18/17 09:28 07/18/17 09:28 07/18/17 09:28 Results - Labs CBC & Chem 7: 07/18/17 05:04 07/18/17 05:04 Labs: Laboratory Last Values WBC 5.2 K/mm3 (4.5-11.0) 07/18/17 05:04 RBC 4.27 M/mm3 (3.65-5.03) 07/18/17 05:04 Hgb 12.4 gm/dl (11.8-15.2) 07/18/17 05:04 Hct 37.7 % (35.5-45.6) 07/18/17 05:04 MCV 88 fl (84-94) 07/18/17 05:04 MCH 29 pg (28-32) 07/18/17 05:04 MCHC 33 % (32-34) 07/18/17 05:04 RDW 14.3 % (13.2-15.2) 07/18/17 05:04 Plt Count 246 K/mm3 (140-440) 07/18/17 05:04 Lymph % (Auto) 26.6 % (13.4-35.0) 07/16/17 14:10 Cannon % (Auto) 10.4 % (0.0-7.3) H 07/16/17 14:10 Eos % (Auto) 2.3 % (0.0-4.3) 07/16/17 14:10 Baso % (Auto) 0.7 % (0.0-1.8) 07/16/17 14:10 Lymph # 1.5 K/mm3 (1.2-5.4) 07/16/17 14:10 Cannon # 0.6 K/mm3 (0.0-0.8) 07/16/17 14:10 Eos # 0.1 K/mm3 (0.0-0.4) 07/16/17 14:10 Baso # 0.0 K/mm3 (0.0-0.1) 07/16/17 14:10 Seg Neutrophils % 60.0 % (40.0-70.0) 07/16/17 14:10 Seg Neutrophils # 3.3 K/mm3 (1.8-7.7) 07/16/17 14:10 PT 14.0 Sec. (12.2-14.9) 07/16/17 14:10 INR 1.03 (0.87-1.13) 07/16/17 14:10 APTT 31.3 Sec. (24.2-36.6) 07/16/17 14:10 Sodium 135 mmol/L (137-145) L 07/18/17 05:04 Potassium 4.4 mmol/L (3.6-5.0) 07/18/17 05:04 Chloride 93.8 mmol/L (98-107) L 07/18/17 05:04 Carbon Dioxide 27 mmol/L (22-30) 07/18/17 05:04 Anion Gap 19 mmol/L 07/18/17 05:04 BUN 9 mg/dL (9-20) 07/18/17 05:04 Creatinine 0.9 mg/dL (0.8-1.5) 07/18/17 05:04 Estimated GFR > 60 ml/min 07/18/17 05:04 BUN/Creatinine Ratio 10 % 07/18/17 05:04 Glucose 194 mg/dL (75-100) H 07/18/17 05:04 POC Glucose 116 (70-105) H 07/17/17 21:39 Calcium 9.0 mg/dL (8.4-10.2) 07/18/17 05:04 Total Bilirubin 0.30 mg/dL (0.1-1.2) 07/16/17 14:10 AST 11 units/L (5-40) 07/16/17 14:10 ALT 9 units/L (7-56) 07/16/17 14:10 Alkaline Phosphatase 63 units/L (35-129) 07/16/17 14:10 Total Protein 7.7 g/dL (6.3-8.2) 07/16/17 14:10 Albumin 3.8 g/dL (3.9-5) L 07/16/17 14:10 Albumin/Globulin Ratio 1.0 % 07/16/17 14:10 Lipase 36 units/L (13-60) 07/16/17 14:10 Blood Type O POSITIVE 07/16/17 14:10 Antibody Screen Negative 07/16/17 14:10
[2017-07-18] MEDS: NEURONTIN PO SCH ×3 (11:21→22:09)
[2017-07-18] MEDS ORDERED: DULCOLAX PO ONE (16:00)
[2017-07-18] MEDS ORDERED: GOLYTELY PO ONE (17:00)
[2017-07-19] MEDS: NOVOLOG SUB-Q SCH ×4 (00:33→17:48)
[2017-07-19] MEDS: MORPHINE IV PRN ×4 (04:19→22:10)
[2017-07-19] MEDS: SYNTHROID PO SCH (06:23)
[2017-07-19] MEDS: NEURONTIN PO SCH ×3 (08:15→21:56)
[2017-07-19] MEDS: BROVANA NEBU IH SCH ×2 (09:35→20:21)
[2017-07-19] MEDS: PULMICORT IH SCH ×2 (09:35→20:21)
[2017-07-19] MEDS: IMDUR PO SCH (10:13)
[2017-07-19] MEDS ORDERED: NACL 0.9% 1000 ML 1,000 ML IV SCH (14:00)
[2017-07-19] MEDS ORDERED: WATER FOR IRRIG STERILE ONE (14:50)
[2017-07-19] MEDS ORDERED: WATER FOR IRRIG STERILE IR ONE (14:50)
--- NOTE | 2017-07-19 15:25 | Anesthesia Consultation ---
Anesthesia Consult and Med Hx Date of service: 07/19/17 - Airway Anesthetic Teeth Evaluation: Poor ROM Head & Neck: Adequate Mental/Hyoid Distance: Adequate Mallampati Class: Class III Intubation Access Assessment: Possibly Difficult - Pulmonary Exam CTA: Yes - Cardiac Exam Cardiac Exam: RRR - Pre-Operative Health Status ASA Pre-Surgery Classification: ASA4 - Pulmonary Hx Smoking: Yes (1 pq3d since 10 yrs old) Hx Asthma: Yes (inhaler prn, last used 1 week ago) COPD: Yes Hx Pneumonia: No - Cardiovascular System Hx Hypertension: Yes Hx Coronary Artery Disease: Yes Hx Heart Attack/AMI: Yes (4 yrs ago sp CABG) Hx Percutaneous Transluminal Coronary Angioplasty (PTCA): Yes Hx Pacemaker: No Hx Internal Defibrillator: No - Central Nervous System Hx Seizures: No CVA: No (denies per pt, rt eye drooping) Hx Psychiatric Problems: No - Gastrointestinal Hx Gastroesophageal Reflux Disease: Yes - Endocrine Hx Renal Disease: No Hx Liver Disease: No Hx Non-Insulin Dependent Diabetes: Yes Hx Hypothyroidism: Yes - Hematic Hx Sickle Cell Disease: No - Additional Comments Anesthesia Medical History Comments: NAC
--- NOTE | 2017-07-19 15:25 | Anesthesia Day of Surgery ---
Anesthesia Day of Surgery - Day of Surgery Patient Examined: Yes Patient H&P Reviewed: Yes Patient is NPO: Yes
[2017-07-19] MEDS ORDERED: DIPRIVAN 10 MG/ML IV ONE ×2 (15:27→15:28)
[2017-07-19] MEDS ORDERED: AMIDATE IV ONE (15:28)
--- NOTE | 2017-07-19 15:41 | Post Operative Note ---
Pre-op diagnosis: hematochezia Post-op diagnosis: other (internal hemorrhoids) Findings: Colonoscopy: Internal hemorrhoids (moderate sized). Fair prep for diagnostic purposes, but unable to rule out small lesions/polyps. Otherwise no significant findings. Procedure: colonoscopy Anesthesia: MAC Surgeon: LATONYA AGUAYO Estimated blood loss: none Pathology: none Condition: stable Disposition: floor
--- NOTE | 2017-07-19 15:46 | Operative Report ---
Operative Report Operative Report: COLONOSCOPY PROCEDURE NOTE DATE OF PROCEDURE: 07/19/2017 ENDOSCOPIST: Jhno Conner PRE-OP DIAGNOSIS: hematochezia POST-OP DIAGNOSIS: internal hemorrhoids ANESTHESIA: MAC COMPLICATIONS: no immediate complications ESTIMATED BLOOD LOSS: none PROCEDURE: After consent was obtained, the patient was placed in the left lateral decubitus position. The fujinon colonoscope was inserted into the rectum under direct vision, and advanced to the cecum without difficulty. The patient tolerated the procedure well. The quality of prep was fair for diagnostic purposes (inadequate for detailed screening colonoscopy however). The patient' s vital signs were monitored continuously throughout the procedure. FINDINGS: Internal hemorrhoids (moderate-sized) were seen on retroflexion view. There were portions of semi-solid stool in the colon which prevented detailed visualization in certain locations, however no other obvious significant findings were seen. IMPRESSION: 1. Internal hemorrhoids - likely source of patient's hematochezia. 2. Poor prep for screening colonoscopy, however adequate for diagnostic purposes for hematochezia etiology (no obvious mass, tics, or mucosal abnormalities) RECOMMENDATIONS: -bowel regimen daily to avoid constipation/straining -hemorrhoidal cream/suppository as needed -repeat colonoscopy as outpatient for screening purposes in 3-6 months -follow-up in GI clinic in 1 month
--- NOTE | 2017-07-20 01:43 | Progress Note ---
Assessment and Plan Assessment and plan: Acute GI bleed. H/H stable. EGD done yesterday unremarkable. Colonoscopy today revealed internal hemorrhoids as source of bleeding. Plavix on hold. Coronary arterty disease, s/p CABG. Plavix on hold because of GI bleed Diabetes mellitus type 2. Check fingerstick Qac and hs Hypertensive urgency. BP uncontrolled. Give Imdur.. Lisinopril was on hold because of hyperkalemia Hyperlipidemia Hyperkalemia, resolved. Full code status May d/c home if H/H stable and BP controlled. History Interval history: Patient presented with blood in stool, no chest pain, Had colonoscopy today Hospitalist Physical - Physical exam Narrative exam: GEN APPEARANCE : Not in acute distress HEENT: Normocephalic Atraumatic NECK : supple, no JVD LUNGS: clear to auscultation bilaterally, no rales, no wheeze HEART: S1 and S2 regular, tachycardia, no murmurs, rubs or gallop, ABD: Soft, no tenderness, no distension, normal bowel sounds EXT: No edema, no clubbing, no cyanosis NEURO: Awake,alert,oriented x 3, no facial asymmetry,no focal signs - Constitutional Vitals: Temp Pulse Resp BP Pulse Ox 98.7 F 79 20 125/69 98 07/20/17 00:19 07/20/17 00:19 07/20/17 00:19 07/20/17 00:19 07/20/17 00:19 Results - Labs CBC & Chem 7: 07/18/17 05:04 07/18/17 05:04 Labs: Laboratory Last Values WBC 5.2 K/mm3 (4.5-11.0) 07/18/17 05:04 RBC 4.27 M/mm3 (3.65-5.03) 07/18/17 05:04 Hgb 12.4 gm/dl (11.8-15.2) 07/18/17 05:04 Hct 37.7 % (35.5-45.6) 07/18/17 05:04 MCV 88 fl (84-94) 07/18/17 05:04 MCH 29 pg (28-32) 07/18/17 05:04 MCHC 33 % (32-34) 07/18/17 05:04 RDW 14.3 % (13.2-15.2) 07/18/17 05:04 Plt Count 246 K/mm3 (140-440) 07/18/17 05:04 Lymph % (Auto) 26.6 % (13.4-35.0) 07/16/17 14:10 Parke % (Auto) 10.4 % (0.0-7.3) H 07/16/17 14:10 Eos % (Auto) 2.3 % (0.0-4.3) 07/16/17 14:10 Baso % (Auto) 0.7 % (0.0-1.8) 07/16/17 14:10 Lymph # 1.5 K/mm3 (1.2-5.4) 07/16/17 14:10 Parke # 0.6 K/mm3 (0.0-0.8) 07/16/17 14:10 Eos # 0.1 K/mm3 (0.0-0.4) 07/16/17 14:10 Baso # 0.0 K/mm3 (0.0-0.1) 07/16/17 14:10 Seg Neutrophils % 60.0 % (40.0-70.0) 07/16/17 14:10 Seg Neutrophils # 3.3 K/mm3 (1.8-7.7) 07/16/17 14:10 PT 14.0 Sec. (12.2-14.9) 07/16/17 14:10 INR 1.03 (0.87-1.13) 07/16/17 14:10 APTT 31.3 Sec. (24.2-36.6) 07/16/17 14:10 Sodium 135 mmol/L (137-145) L 07/18/17 05:04 Potassium 4.4 mmol/L (3.6-5.0) 07/18/17 05:04 Chloride 93.8 mmol/L (98-107) L 07/18/17 05:04 Carbon Dioxide 27 mmol/L (22-30) 07/18/17 05:04 Anion Gap 19 mmol/L 07/18/17 05:04 BUN 9 mg/dL (9-20) 07/18/17 05:04 Creatinine 0.9 mg/dL (0.8-1.5) 07/18/17 05:04 Estimated GFR > 60 ml/min 07/18/17 05:04 BUN/Creatinine Ratio 10 % 07/18/17 05:04 Glucose 194 mg/dL (75-100) H 07/18/17 05:04 POC Glucose 178 (70-105) H 07/19/17 22:02 Calcium 9.0 mg/dL (8.4-10.2) 07/18/17 05:04 Total Bilirubin 0.30 mg/dL (0.1-1.2) 07/16/17 14:10 AST 11 units/L (5-40) 07/16/17 14:10 ALT 9 units/L (7-56) 07/16/17 14:10 Alkaline Phosphatase 63 units/L (35-129) 07/16/17 14:10 Total Protein 7.7 g/dL (6.3-8.2) 07/16/17 14:10 Albumin 3.8 g/dL (3.9-5) L 07/16/17 14:10 Albumin/Globulin Ratio 1.0 % 07/16/17 14:10 Lipase 36 units/L (13-60) 07/16/17 14:10 Blood Type O POSITIVE 07/16/17 14:10 Antibody Screen Negative 07/16/17 14:10
[2017-07-20] MEDS: SYNTHROID PO SCH (05:56)
[2017-07-20] MEDS: MORPHINE IV PRN ×2 (05:56→10:43)
[2017-07-20] MEDS: PULMICORT IH SCH (08:57)
[2017-07-20] MEDS: BROVANA NEBU IH SCH (08:57)
[2017-07-20] MEDS: NEURONTIN PO SCH (09:03)
[2017-07-20] MEDS: IMDUR PO SCH (09:03)
[2017-07-20] MEDS: NOVOLOG SUB-Q SCH (09:04)
[2017-07-20] MEDS ORDERED: VITAMIN D2 PO SCH (10:00)
--- NOTE | 2017-07-20 10:18 | Query- Abnormal Electrolytes ---
Dear ____Katie Date:____07/20/17 Residential Real Estate Sales Manager/CDS:___Rene Phone#:__[phone] Exercise your independent professional judgment when responding to this query. Questions asked do not imply a particular answer is desired or expected. We greatly appreciate your clarification on this issue. Clinical Documentation States: 62 year old male was admitted on 07/16/17 The H&P (Dr. Jaime) states " 62 YO Male with HTN, [place], DM, GERD, Asthma, COPD, HLD, Nicotine Dependence, CAD S/P CABG, Stent placement, Metabolic Syndrome, PUD , Gastritis presents to ED for evaluation. Pt states that he has experienced abdominal pain and rectal bleeding for the past 2 days " The progress note (Dr. Wilson 07/19/17) states " Assessment and plan: Acute GI bleed. H/H stable. EGD done yesterday unremarkable. Colonoscopy today revealed internal hemorrhoids as source of bleeding. " Clinical Findings Show: Sodium: 133 Can you please clarify whether you mean? [x ] Hyponatremia [ ] Hypokalemia [ ] Hypocalcemia [ ] Hypomagnesemia [ ] Hypernatremia [ ] Hyperkalemia [ ] Hypercalcemia [ ] Hypermagnesemia [ ] Sodium deficiency [ ] Potassium deficiency [ ] Hypochloremia [ ] Sodium excess [ ] Potassium excess [ ] Hyperchloremia [ ] Sodium overload [ ] Potassium overload [ ] Hypophosphatemia [ ] Hyperphosphatemia Acidosis; [ ] Respiratory [ ] Metabolic Alkalosis; [ ] Respiratory [ ] Metabolic [ ] Other: [ ] Comment/Explanation: Present on Admission: [x ] Yes (Y) [ ] Clinically undeterminable (W) [ ]No(N) Please also document response in your Progress Notes and/or Discharge Summary and indicate if the condition was present on admission. MTDD
--- NOTE | 2017-07-20 10:36 | Event Note ---
Date: 07/20/17 Patient s/p colonoscopy yesterday. Labs/chart reviewed. Patient should f/u in GI clinic in 1 month after discharge and should have repeat colonoscopy as outpatient per colonoscopy recommendations. Please call back as needed or with questions.
--- NOTE | 2017-07-20 10:59 | Discharge Summary ---
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 Pt. underwent EGD and colonoscopy with GI in consultation. EGD revealed retained semi-liquid contents in gastric fundus/body, otherwise unremarkable and colonoscopy revealed Internal hemorrhoids in which GI felt was likely source of patient's hematochezia. The Abd pain resolved and pt. is felt to have received maximal hospital benefit. Dedicated discharge time 32 minutes Disposition: [id number] TO HOME OR SELFCARE Time spent for discharge: 32 - Discharge Diagnoses (1) Hematochezia Status: Acute (2) Abdominal pain Status: Acute Qualifiers: Abdominal location: lower abdomen, unspecified Qualified Code(s): R10.30 - Lower abdominal pain, unspecified (3) GI bleed Status: Acute Qualifiers: GI bleed type/associated pathology: anorectal hemorrhage Qualified Code(s) : K62.5 - Hemorrhage of anus and rectum Core Measure Documentation - Palliative Care Palliative Care/ Comfort Measures: Not Applicable - Core Measures Any of the following diagnoses?: none Exam - Constitutional Vitals: Temp Pulse Resp BP Pulse Ox 98.1 F 75 20 127/80 97 07/20/17 08:45 07/20/17 08:45 07/20/17 08:45 07/20/17 08:45 07/20/17 08:45 General appearance: Present: no acute distress, well-nourished - EENT Eyes: Present: PERRL ENT: hearing intact, clear oral mucosa - Neck Neck: Present: supple, normal ROM - Respiratory Respiratory effort: normal Respiratory: bilateral: CTA - Cardiovascular Heart Sounds: Present: S1 & S2. Absent: rub, click - Extremities Extremities: pulses symmetrical, No edema Peripheral Pulses: within normal limits - Abdominal General gastrointestinal: Present: soft, non-tender, non-distended, normal bowel sounds Male genitourinary: Present: normal - Integumentary Integumentary: Present: clear, warm, dry - Musculoskeletal Musculoskeletal: gait normal, strength equal bilaterally - Psychiatric Psychiatric: appropriate mood/affect, intact judgment & insight - Neurologic Neurologic: CNII-XII intact, moves all extremities Plan Activity: no restrictions Weight Bearing Status: Full Weight Bearing Diet: regular Follow up with: PRIMARY CARE, [Primary Care Provider] - 3-5 Days Forms: Accompanied Note Prescriptions: AtorvaSTATin [Lipitor] 40 mg PO QHS #30 tablet Bisacodyl [Dulcolax suppos] 10 mg [place] QDAY PRN #30 supp.rect PRN Reason: Constipation unrelieved by MOM Gabapentin [Neurontin] 300 mg PO TID #90 capsule ISOSORBIDE MONOnitrate [Imdur ER] 30 mg PO DAILY #30 tablet Levothyroxine [Synthroid] 25 mcg PO QAM #30 tablet oxyCODONE /ACETAMINOPHEN 10 mg PO BID PRN #20 PRN Reason: Pain
[2017-07-20 12:16] VITALS: BP 97/73
== END 2017-07-20 13:00 | disposition home or self-care (01) | DRG 394 ==
LOC: ED 12:30 → 4A 18:11
PROVIDERS: ADMIT Internal Medicine; ATTEND Hospitalist
PROC: 0DJ08ZZ Inspection of Upper Intestinal Tract, Via Natural or Artificial Opening Endoscopic (ICD-10-PCS; principal; 2017-07-18)
PROC: 0DJD8ZZ Inspection of Lower Intestinal Tract, Via Natural or Artificial Opening Endoscopic (ICD-10-PCS; 2017-07-19)
DX: K64.8 Other hemorrhoids (principal); E87.1 Hypo-osmolality and hyponatremia; I25.10 Atherosclerotic heart disease of native coronary artery without angina pectoris; E78.5 Hyperlipidemia, unspecified; F17.200 Nicotine dependence, unspecified, uncomplicated; E88.81 Metabolic syndrome and other insulin resistance; K21.9 Gastro-esophageal reflux disease without esophagitis; J44.9 Chronic obstructive pulmonary disease, unspecified; E87.5 Hyperkalemia; K31.89 Other diseases of stomach and duodenum; E11.9 Type 2 diabetes mellitus without complications; Z87.11 Personal history of peptic ulcer disease; I25.2 Old myocardial infarction; Z95.1 Presence of aortocoronary bypass graft; Z95.5 Presence of coronary angioplasty implant and graft; Z83.3 Family history of diabetes mellitus; Z82.49 Family history of ischemic heart disease and other diseases of the circulatory system; Z79.82 Long term (current) use of aspirin; Z79.899 Other long term (current) drug therapy; Z79.2 Long term (current) use of antibiotics; Z79.4 Long term (current) use of insulin; Z79.1 Long term (current) use of non-steroidal anti-inflammatories (NSAID); Z86.73 Personal history of transient ischemic attack (TIA), and cerebral infarction without residual deficits; K44.9 Diaphragmatic hernia without obstruction or gangrene
CPT/HCPCS: 36415; 74177; 80048; 80053; 82271; 82962; 83690; 85025; 85027; 85610; 85730; 86850; 86900; 86901; 93005; 93010; 94640; 96374; 96375; 96376; 99291; 99406; A9270-GY; C9113; J0360; J1815; J2270; J2405; J2704; J7030; Q9967

== ENCOUNTER 2017-09-06 18:54 | Emergency (ER) | payer MEDICARE ==
[2017-09-06] MEDS ORDERED: NACL 0.9% 1000 ML 1,000 ML IV ONE (20:16)
--- NOTE | 2017-09-06 20:30 | Emergency Department Report ---
ED Syncope HPI - General Chief Complaint: Weakness Stated Complaint: GENERAL WEAKNESS/JENNA Time Seen by Provider: 09/06/17 20:15 Source: patient Exam Limitations: no limitations - History of Present Illness Initial Comments: Patient is 62 years old male history of CABG, hypertension brought in by EMS for evaluation of one single episode of syncope. Patient stated that he was standing for over 30 minutes cooking when this happened. Patient denied any loss of consciousness, chest pain, shortness of breath. Patient is back to his normal. EMS stated patient had orthostatic hypotension lying down blood pressure is 106/58 sitting up is 80/50. Patient denied any nausea, vomiting or diarrhea. Timing/Prior Episodes: single episode today Precipitating Factors: Positive: other Context: standing Current Symptoms: back to normal - Related Data Allergies/Adverse Reactions: Allergies No Known Allergies Allergy (Verified 09/07/14 06:49) Home Medications: Ambulatory Orders Acetaminophen [Acetaminophen TAB] 500 mg PO BID PRN 09/05/14 ALBUTEROL Inhaler [ProAir HFA Inhaler] 2 puff IH QID PRN #1 inhalation 09/10/14 Budesoni/Formotero 160-4.5(Nf) [Symbicort 160-4.5 (Nf)] 2 puff IH BID #1 inha Clopidogrel [Plavix] 75 mg PO QDAY #30 tablet 09/10/14 Pen Needle, Diabetic [Pen Needle] 1 each HS #100 dis.needle 04/14/16 Aspirin 81 mg PO DAILY 04/25/17 Famotidine [Pepcid] 20 mg PO BID 04/25/17 Lisinopril [Zestril TAB] 10 mg PO QDAY 04/25/17 Nitroglycerin [Nitrostat] 0.4 mg SL PRN PRN 04/25/17 Ergocalciferol [Vitamin D2] 1 cap PO QWEEK 07/16/17 Insulin NPH/Regular [NovoLIN 70/30] 10 unit SQ BIDDIAB 07/16/17 Metformin HCl [Glucophage] 850 mg PO BID 07/16/17 Omeprazole [PriLOSEC] 20 mg PO DAILY 07/16/17 Ranitidine HCl [Heartburn Relief] 150 mg PO BID 07/16/17 AtorvaSTATin [Lipitor] 40 mg PO QHS #30 tablet 07/20/17 Bisacodyl [Dulcolax suppos] 10 mg CA QDAY PRN #30 supp.rect 07/20/17 Gabapentin [Neurontin] 300 mg PO TID #90 capsule 07/20/17 ISOSORBIDE MONOnitrate [Imdur ER] 30 mg PO DAILY #30 tablet 07/20/17 Levothyroxine [Synthroid] 25 mcg PO QAM #30 tablet 07/20/17 oxyCODONE /ACETAMINOPHEN 10 mg PO BID PRN #20 07/20/17 ED Review of Systems ROS: Stated complaint: GENERAL WEAKNESS/JENNA Other details as noted in HPI Comment: All other systems reviewed and negative Constitutional: denies: chills, fever ENT: denies: throat pain, dental pain Respiratory: denies: cough, orthopnea, shortness of breath, SOB with exertion, SOB at rest, wheezing Cardiovascular: syncope. denies: chest pain, palpitations, dyspnea on exertion , orthopnea, edema, paroxysmal nocturnal dyspnea Gastrointestinal: denies: abdominal pain, nausea, vomiting, diarrhea, constipation, hematemesis, melena, hematochezia Genitourinary: denies: urgency, dysuria, frequency, hematuria, discharge Neurological: weakness (generalized). 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) Hx Congestive Heart Failure: No Hx Diabetes: Yes Hx Deep Vein Thrombosis: No Hx Pulmonary Embolism: No Hx GERD: Yes Hx Liver Disease: No Hx Renal Disease: No Hx Sickle Cell Disease: No Hx Arthritis: No Hx Headaches / Migraines: No Hx Seizures: No Hx Kidney Stones: No Hx Psychiatric Treatment: No Hx Asthma: Yes (inhaler prn, last used 1 week ago) Hx COPD: Yes Hx Tuberculosis: No Hx Dementia: No Hx HIV: No Additional medical history: high cholest, CAD, gastritis, recurrent abdominal pain - Surgical History Past Surgical History?: Yes Hx Coronary Stent: Yes Hx Open Heart Surgery: Yes Hx Pacemaker: No Hx Internal Defibrillator: No Hx Cholecystectomy: No Hx Appendectomy: No Hx Breast Surgery: No Additional Surgical History: hernia surg x 3, peptic ulcer disease surgery - Social History Smoking Status: Current Every Day Smoker - Medications Home Medications: Home Medications Medication Instructions Recorded Confirmed Last Taken Type Acetaminophen [Acetaminophen TAB] 500 mg PO BID PRN 09/05/14 07/16/17 04/11/16 09:00 History ALBUTEROL Inhaler [ProAir HFA 2 puff IH QID PRN #1 inhalation 09/10/14 07/16/17 04/11/16 09:00 Rx Inhaler] Budesoni/Formotero 160-4.5(Nf) 2 puff IH BID #1 inha 09/10/14 07/16/17 04/11/16 09:00 Rx [Symbicort 160-4.5 (Nf)] Clopidogrel [Plavix] 75 mg PO QDAY #30 tablet 09/10/14 07/16/17 04/11/16 09:00 Rx Pen Needle, Diabetic [Pen Needle] 1 each HS #100 dis.needle 04/14/16 Unknown Rx Aspirin 81 mg PO DAILY 04/25/17 07/16/17 04/25/17 History Famotidine [Pepcid] 20 mg PO BID 04/25/17 07/16/17 Unknown History Lisinopril [Zestril TAB] 10 mg PO QDAY 04/25/17 07/16/17 Unknown History Nitroglycerin [Nitrostat] 0.4 mg SL PRN PRN 04/25/17 07/16/17 Unknown History Ergocalciferol [Vitamin D2] 1 cap PO QWEEK 07/16/17 07/16/17 Unknown History Insulin NPH/Regular [NovoLIN 70/30] 10 unit SQ BIDDIAB 07/16/17 07/16/17 History Metformin HCl [Glucophage] 850 mg PO BID 07/16/17 07/16/17 Unknown History Omeprazole [PriLOSEC] 20 mg PO DAILY 07/16/17 07/16/17 Unknown History Ranitidine HCl [Heartburn Relief] 150 mg PO BID 07/16/17 07/16/17 Unknown History AtorvaSTATin [Lipitor] 40 mg PO QHS #30 tablet 07/20/17 Unknown Rx Bisacodyl [Dulcolax suppos] 10 mg CA QDAY PRN #30 supp.rect 07/20/17 Unknown Rx Gabapentin [Neurontin] 300 mg PO TID #90 capsule 07/20/17 Unknown Rx ISOSORBIDE MONOnitrate [Imdur ER] 30 mg PO DAILY #30 tablet 07/20/17 Unknown Rx Levothyroxine [Synthroid] 25 mcg PO QAM #30 tablet 07/20/17 Unknown Rx oxyCODONE /ACETAMINOPHEN 10 mg PO BID PRN #20 07/20/17 Unknown Rx ED Physical Exam - General Limitations: No Limitations, Other General appearance: alert, in no apparent distress - Head Head exam: Present: atraumatic, normocephalic, normal inspection - Eye Eye exam: Present: normal appearance, PERRL - ENT ENT exam: Present: normal exam, normal orophraynx, mucous membranes moist - Neck Neck exam: Present: normal inspection, full ROM. Absent: tenderness, meningismus, lymphadenopathy, thyromegaly - Respiratory Respiratory exam: Present: normal lung sounds bilaterally. Absent: respiratory distress, wheezes, rales, rhonchi, stridor, chest wall tenderness, accessory muscle use, decreased breath sounds, prolonged expiratory - Cardiovascular Cardiovascular Exam: Present: regular rate, normal rhythm, normal heart sounds - GI/Abdominal GI/Abdominal exam: Present: soft, normal bowel sounds. Absent: distended, tenderness, guarding, rebound, rigid, organomegaly, mass, bruit, pulsatile mass , hernia - Extremities Exam Extremities exam: Present: normal inspection, full ROM, normal capillary refill. Absent: pedal edema, joint swelling, calf tenderness - Back Exam Back exam: Present: normal inspection, full ROM. Absent: tenderness, CVA tenderness (R), CVA tenderness (L), muscle spasm, paraspinal tenderness, vertebral tenderness - Neurological Exam Neurological exam: Present: alert, oriented X3, CN II-XII intact, normal gait, reflexes normal. Absent: abnormal gait, motor sensory deficit - Skin Skin exam: Present: warm, intact, normal color. Absent: cyanosis, diaphoretic, erythema, urticaria ED Course Vital Signs 09/06/17 09/06/17 09/06/17 19:35 19:54 20:00 Temperature 98.2 F Pulse Rate 85 84 Respiratory 13 15 Rate Blood Pressure 107/67 120/71 Blood Pressure 107/67 [Right] O2 Sat by Pulse 98 97 97 Oximetry 09/06/17 09/06/17 09/06/17 20:16 20:30 20:46 Temperature Pulse Rate 84 85 89 Respiratory 15 13 17 Rate Blood Pressure 120/71 120/71 136/71 Blood Pressure [Right] O2 Sat by Pulse 97 99 98 Oximetry 09/06/17 09/06/17 09/06/17 21:16 21:30 21:46 Temperature Pulse Rate 92 H 85 Respiratory 26 H 13 24 Rate Blood Pressure 136/71 136/71 136/71 Blood Pressure [Right] O2 Sat by Pulse 97 96 97 Oximetry 09/06/17 09/06/17 09/06/17 22:00 22:16 22:30 Temperature Pulse Rate 82 88 85 Respiratory 16 26 H 36 H Rate Blood Pressure 118/75 118/75 133/77 Blood Pressure [Right] O2 Sat by Pulse 95 98 97 Oximetry 09/06/17 09/06/17 09/06/17 22:46 23:00 23:16 Temperature Pulse Rate 87 79 89 Respiratory 16 30 H 23 Rate Blood Pressure 133/77 132/85 132/85 Blood Pressure [Right] O2 Sat by Pulse 98 99 Oximetry 09/06/17 09/06/17 09/06/17 23:20 23:30 23:36 Temperature Pulse Rate 80 79 96 H Respiratory 16 23 19 Rate Blood Pressure 132/85 119/69 119/69 Blood Pressure [Right] O2 Sat by Pulse 98 96 97 Oximetry 09/06/17 09/07/17 09/07/17 23:46 00:00 00:16 Temperature Pulse Rate 85 83 87 Respiratory 28 H 27 H 13 Rate Blood Pressure 119/69 119/72 119/72 Blood Pressure [Right] O2 Sat by Pulse 97 98 98 Oximetry 09/07/17 09/07/17 09/07/17 00:30 00:46 01:00 Temperature Pulse Rate Respiratory 15 12 13 Rate Blood Pressure 118/68 118/68 118/68 Blood Pressure [Right] O2 Sat by Pulse 94 97 97 Oximetry 09/07/17 09/07/17 09/07/17 01:16 01:30 01:46 Temperature Pulse Rate Respiratory 13 15 13 Rate Blood Pressure 128/70 117/72 117/72 Blood Pressure [Right] O2 Sat by Pulse 97 97 97 Oximetry 09/07/17 09/07/17 09/07/17 02:00 02:16 02:30 Temperature Pulse Rate 87 81 Respiratory 18 14 16 Rate Blood Pressure 114/70 114/70 118/60 Blood Pressure [Right] O2 Sat by Pulse 98 97 96 Oximetry - Reevaluation(s) Reevaluation #1: 09/07/17 03:36 Patient movement, particularly easily arousable, patient stated that he is not having any symptoms now. Advised patient to follow up with his primary care physician in the next 2-3 days and to return to the ER if his symptoms came back. ED Medical Decision Making - Lab Data Result diagrams: 09/06/17 21:45 09/06/17 21:45 - EKG Data -: EKG Interpreted by Ut EKG shows normal: sinus rhythm Rate: normal - EKG Data Interpretation: no acute changes - Radiology Data Radiology results: report reviewed Referring Physician: ROD RODRIGUEZ Patient Name: JOEL GONSALES Date of : 1955 Sex: Male Report Date: 2017-09-06 Report Status: [place] [address] Cat Scan Report Signed Patient: JOEL GONSALES MR#: [id number] : 1955 Acct:[id number] Age/Sex: 62 / M ADM Date: 09/06/17 Loc: ED Attending Dr: Ordering Physician: ROD RODRIGUEZ Date of Service: 09/07/17 Procedure(s): CT angio chest Accession Number(s): [id number] cc: ROD RODRIGUEZ FINAL REPORT EXAM: CT ANGIO CHEST HISTORY: SYNCOPE and elevated d-dimer TECHNIQUE: A CT angiogram was performed following the intravenous injection of 100 cc of Omnipaque 350. Rotational, sagittal and coronal MIP reconstructions were reviewed. The previous study of 02/01/2015 was also reviewed for correlation. FINDINGS: There is no evidence of pulmonary embolus or aortic dissection. There are midline sternotomy sutures. The heart size is normal. Pericardial fluid is not seen. There is no evidence of lymphadenopathy. The lungs are negative for infiltrates or congestion. Pleural fluid is not seen. There are several small blebs in the apices. In the upper abdomen there is a small hiatal hernia. The adrenal glands appear normal. At the thoracic inlet the thyroid gland appears normal. The skeletal structures reveal multilevel disc degeneration in the thoracic spine. IMPRESSION: No evidence of pulmonary embolus or aortic dissection. No acute process in the chest. Small hiatal hernia. Transcribed By: RB Dictated By: FELIX JAIME MD Electronically Authenticated By: FELIX JAIME MD Signed Date/Time: 09/06/172315 DD/ 15 TD/TT: 09/06/172315 Critical care attestation.: If time is entered above; I have spent that time in minutes in the direct care of this critically ill patient, excluding procedure time. ED Disposition Clinical Impression: Syncope, Shortness of breath Disposition: DC-01 TO HOME OR SELFCARE Is pt being admited?: No Condition: Stable Instructions: Syncope (ED) Referrals: PRIMARY CAREMD [Primary Care Provider] - 3-5 Days
--- NOTE | 2017-09-06 22:07 | Cat Scan Report ---
FINAL REPORT PROCEDURE: CT HEAD/BRAIN WO CON TECHNIQUE: Computerized tomography of the head was performed without contrast material. HISTORY: syncope COMPARISON: No prior studies are available for comparison. FINDINGS: Skull and scalp: Slight swelling posterior head Paranasal sinuses: Normal. Ventricles and subarachnoid spaces: Normal. Cerebrum: No evidence of hemorrhage, acute infarction or mass . Cerebellum and brainstem: No evidence of hemorrhage, acute infarction or mass. Vasculature: Normal. Comments: None. IMPRESSION: No acute intracranial bleed or skull fracture
[2017-09-06 22:47] LABS: Basophils % (Auto) 0.6 % (0.0-1.8); Eosinophils # (Auto) 0.1 K/mm3 (0.0-0.4); Eosinophils % (Auto) 2.3 % (0.0-4.3); Hematocrit 37.9 % (35.5-45.6); Hemoglobin 11.9 gm/dl (11.8-15.2); Lymphocytes # (Auto) 1.7 K/mm3 (1.2-5.4); Lymphocytes % (Auto) 33.2 % (13.4-35.0); Mean Corpuscular HGB Conc 31 % (32-34); Mean Corpuscular Hemoglobin 28 pg (28-32); Mean Corpuscular Volume 88 fl (84-94); Monocytes # (Auto) 0.4 K/mm3 (0.0-0.8); Monocytes % (Auto) 8.7 % (0.0-7.3); Platelet Count 240 K/mm3 (140-440); Red Cell Distribution Width 14.4 % (13.2-15.2)
[2017-09-06 23:21] LABS: Alanine Aminotransferase 12 units/L (7-56); Albumin 3.7 g/dL (3.9-5); BUN/Creatinine Ratio 12; Blood Urea Nitrogen 11 mg/dL (9-20); Calcium 9.1 mg/dL (8.4-10.2); Hemolysis Index 4
--- NOTE | 2017-09-07 03:18 | Cat Scan Report ---
FINAL REPORT EXAM: CT ANGIO CHEST HISTORY: SYNCOPE and elevated d-dimer TECHNIQUE: A CT angiogram was performed following the intravenous injection of 100 cc of Omnipaque 350. Rotational, sagittal and coronal MIP reconstructions were reviewed. The previous study of 02/01/2015 was also reviewed for correlation. FINDINGS: There is no evidence of pulmonary embolus or aortic dissection. There are midline sternotomy sutures. The heart size is normal. Pericardial fluid is not seen. There is no evidence of lymphadenopathy. The lungs are negative for infiltrates or congestion. Pleural fluid is not seen. There are several small blebs in the apices. In the upper abdomen there is a small hiatal hernia. The adrenal glands appear normal. At the thoracic inlet the thyroid gland appears normal. The skeletal structures reveal multilevel disc degeneration in the thoracic spine. IMPRESSION: No evidence of pulmonary embolus or aortic dissection. No acute process in the chest. Small hiatal hernia.
[2017-09-07 04:49] VITALS: BP 115/67
== END 2017-09-07 04:51 | disposition home or self-care (01) ==
LOC: ED 18:54
DX: R55 Syncope and collapse (principal); R06.02 Shortness of breath; Z86.73 Personal history of transient ischemic attack (TIA), and cerebral infarction without residual deficits; I25.2 Old myocardial infarction; E11.9 Type 2 diabetes mellitus without complications; K21.9 Gastro-esophageal reflux disease without esophagitis; J44.9 Chronic obstructive pulmonary disease, unspecified; J45.909 Unspecified asthma, uncomplicated; Z95.1 Presence of aortocoronary bypass graft; E78.00 Pure hypercholesterolemia, unspecified; Z79.82 Long term (current) use of aspirin
CPT/HCPCS: 36415; 70450; 71275; 80053; 84484; 85025; 85379; 93005; 93010; 96360; 99285; J7030; Q9967

== ENCOUNTER 2017-12-06 18:25 | Emergency (ER) | payer MEDICARE ==
[2017-12-06 18:45] VITALS: BP 93/53
== END 2017-12-07 00:30 | disposition left against medical advice (07) ==
LOC: ED 18:25
DX: R10.9 Unspecified abdominal pain (principal); R07.89 Other chest pain; Z53.21 Procedure and treatment not carried out due to patient leaving prior to being seen by health care provider

== ENCOUNTER 2022-02-19 09:42 | Emergency (ER) | payer MEDICARE ==
[2022-02-19] MEDS ORDERED: MORPHINE 4 MG/1 ML INJ IM ONE (10:20)
[2022-02-19] MEDS ORDERED: SODIUM CHLORIDE 0.9% 1000 ML 1,000 ML ONE (10:28)
[2022-02-19] MEDS ORDERED: fentaNYL 100 MCG/2 ML INJ IV ONE (10:29)
[2022-02-19 11:16] LABS: Alanine Aminotransferase 8 units/L (7-56); Albumin 2.3 g/dL (3.9-5); BUN/Creatinine Ratio 11; Blood Urea Nitrogen 10 mg/dL (9-20); Calcium 9.3 mg/dL (8.4-10.2); Hemolysis Index 14
[2022-02-19 11:25] LABS: Bilirubin,Direct < 0.2 mg/dL (0-0.2)
[2022-02-19] MEDS ORDERED: ONDANSETRON 4 MG/2 ML INJ IV ONE (11:37)
[2022-02-19] MEDS ORDERED: oxyCODONE /ACETAMINOPHEN 5-325MG TAB PO ONE (11:37)
[2022-02-19 13:10] LABS: Red Blood Count 2.49 M/mm3 (3.65-5.03)
[2022-02-19 13:11] LABS: Hematocrit 21.8 % (35.5-45.6); Hemoglobin 7.2 gm/dl (11.8-15.2); Mean Corpuscular HGB Conc 33 % (32-34); Mean Corpuscular Volume 88 fl (84-94)
[2022-02-19 13:12] LABS: Basophils % (Auto) 0.1 % (0.0-1.8); Eosinophils # (Auto) 0.1 K/mm3 (0.0-0.4); Eosinophils % (Auto) 0.5 % (0.0-4.3); Lymphocytes # (Auto) 1.2 K/mm3 (1.2-5.4); Monocytes % (Auto) 6.8 % (0.0-7.3); Platelet Count 578 K/mm3 (140-440); Red Cell Distribution Width 13.5 % (13.2-15.2)
--- NOTE | 2022-02-19 14:52 | Emergency Department Report ---
ED Lower Extremity HPI - General Chief Complaint: Extremity Injury, Lower Stated Complaint: BLEEDING FROM POST SX R FOOT Time Seen by Provider: 02/19/22 10:20 Source: patient Mode of arrival: Ambulatory Limitations: No Limitations - History of Present Illness Initial Comments: Patient is a 66-year-old male 1 week postop from multiple toe amputation on his right foot presenting with complaint of postop bleeding. He was being transported to his scheduled follow-up appointment today however noted to have significant bleeding at the site with saturation of his dressing. Also complains of pain. - Related Data Home Medications Medication Instructions Recorded Confirmed Last Taken Aspirin [Aspirin BABY CHEW TAB] 81 mg PO QDAY #0 04/25/17 12/11/17 04/25/17 Nitroglycerin [Nitrostat] 0.4 mg SL PRN PRN 04/25/17 12/11/17 Unknown Ergocalciferol [Vitamin D2] 1 cap PO QWEEK 07/16/17 12/11/17 Unknown Insulin NPH/Regular [NovoLIN 70/30] 10 unit SQ BIDDIAB 07/16/17 12/11/17 07/15/17 Metformin HCl [Glucophage] 1,000 mg PO BID 07/16/17 12/11/17 Unknown Lisinopril/Hydrochlorothiazide 1 each PO DAILY 12/11/17 12/11/17 Unknown [Zestoretic 10-12.5 mg Tablet] Previous Rx's Medication Instructions Recorded Last Taken Type AtorvaSTATin [Lipitor] 40 mg PO QHS #30 tablet 07/20/17 Unknown Rx Gabapentin 300 mg PO TID #90 capsule 07/20/17 Unknown Rx Levothyroxine [Synthroid] 25 mcg PO QAM #30 tablet 07/20/17 Unknown Rx Pantoprazole [Protonix TAB] 40 mg PO QDAY #30 tablet 12/16/17 Unknown Rx oxyCODONE /ACETAMINOPHEN [Percocet 1 tab PO Q6H PRN #10 tablet 12/16/17 Unknown Rx 5/325 mg] Albuterol Mdi (or & Nicu Only) 2 puff IH QID PRN #1 inhalation 06/12/18 Unknown Rx [ProAir HFA Inhaler] Hydrocodone Bit/Homatrop Me-Br 1 each PO BID #10 tablet 06/12/18 Unknown Rx [Hydrocodone-Homatropine 5-1.5] ISOSORBIDE MONOnitrate [Imdur ER] 30 mg PO QDAY #30 tablet 06/12/18 Unknown Rx Loratadine/Pseudoephedrine 1 each PO Q24HR #7 tablet 06/12/18 Unknown Rx [Claritin-D 24HR] Metoprolol [Lopressor TAB] 25 mg PO BID #60 tablet 06/12/18 Unknown Rx Allergies Allergy/AdvReac Type Severity Reaction Status Date / Time No Known Allergies Allergy Verified 12/11/17 15:59 ED Review of Systems ROS: Stated complaint: BLEEDING FROM POST SX R FOOT Other details as noted in HPI Constitutional: denies: chills, fever Respiratory: denies: cough, shortness of breath, wheezing Cardiovascular: denies: chest pain, palpitations Gastrointestinal: denies: abdominal pain, nausea, diarrhea Genitourinary: denies: urgency, dysuria Musculoskeletal: denies: back pain, joint swelling, arthralgia Skin: denies: rash, lesions Neurological: denies: headache, weakness, paresthesias Psychiatric: denies: anxiety, depression ED Past Medical Hx - Past Medical History Hx Hypertension: Yes Hx CVA: Yes (unknown) Hx Heart Attack/AMI: Yes Hx Congestive Heart Failure: No Hx Diabetes: Yes Hx Deep Vein Thrombosis: No Hx Pulmonary Embolism: No Hx GERD: Yes Hx Liver Disease: No Hx Renal Disease: No Hx Sickle Cell Disease: No Hx Arthritis: No Hx Headaches / Migraines: No Hx Seizures: No Hx Kidney Stones: No Hx Psychiatric Treatment: No Hx Asthma: Yes (inhaler prn, last used 1 week ago) Hx COPD: Yes Hx Tuberculosis: No Hx Dementia: No Hx HIV: No Additional medical history: high cholest, CAD, gastritis, recurrent abdominal pain - Surgical History Hx Coronary Stent: Yes Hx Open Heart Surgery: Yes Hx Pacemaker: No Hx Internal Defibrillator: No Hx Cholecystectomy: No Hx Appendectomy: No Hx Breast Surgery: No Additional Surgical History: hernia surg x 3, peptic ulcer disease surgery - Social History Smoking Status: Unknown if ever smoked - Medications Home Medications: Home Medications Medication Instructions Recorded Confirmed Last Taken Type Aspirin [Aspirin BABY CHEW TAB] 81 mg PO QDAY #0 04/25/17 12/11/17 04/25/17 History Nitroglycerin [Nitrostat] 0.4 mg SL PRN PRN 04/25/17 12/11/17 Unknown History Ergocalciferol [Vitamin D2] 1 cap PO QWEEK 07/16/17 12/11/17 Unknown History Insulin NPH/Regular [NovoLIN 70/30] 10 unit SQ BIDDIAB 07/16/17 12/11/17 History Metformin HCl [Glucophage] 1,000 mg PO BID 07/16/17 12/11/17 Unknown History AtorvaSTATin [Lipitor] 40 mg PO QHS #30 tablet 07/20/17 12/11/17 Unknown Rx Gabapentin 300 mg PO TID #90 capsule 07/20/17 12/11/17 Unknown Rx Levothyroxine [Synthroid] 25 mcg PO QAM #30 tablet 07/20/17 12/11/17 Unknown Rx Lisinopril/Hydrochlorothiazide 1 each PO DAILY 12/11/17 12/11/17 Unknown History [Zestoretic 10-12.5 mg Tablet] Pantoprazole [Protonix TAB] 40 mg PO QDAY #30 tablet 12/16/17 Unknown Rx oxyCODONE /ACETAMINOPHEN [Percocet 1 tab PO Q6H PRN #10 tablet 12/16/17 Unknown Rx 5/325 mg] Albuterol Mdi (or & Nicu Only) 2 puff IH QID PRN #1 inhalation 06/12/18 Unknown Rx [ProAir HFA Inhaler] Hydrocodone Bit/Homatrop Me-Br 1 each PO BID #10 tablet 06/12/18 Unknown Rx [Hydrocodone-Homatropine 5-1.5] ISOSORBIDE MONOnitrate [Imdur ER] 30 mg PO QDAY #30 tablet 06/12/18 Unknown Rx Loratadine/Pseudoephedrine 1 each PO Q24HR #7 tablet 06/12/18 Unknown Rx [Claritin-D 24HR] Metoprolol [Lopressor TAB] 25 mg PO BID #60 tablet 06/12/18 Unknown Rx ED Physical Exam - General Limitations: No Limitations General appearance: alert, in no apparent distress - Head Head exam: Present: atraumatic, normocephalic - Neck Neck exam: Present: normal inspection - Respiratory Respiratory exam: Present: normal lung sounds bilaterally. Absent: respiratory distress - Cardiovascular Cardiovascular Exam: Present: regular rate, normal rhythm. Absent: systolic murmur, diastolic murmur, rubs, gallop - GI/Abdominal GI/Abdominal exam: Present: soft. Absent: distended, tenderness - Rectal Rectal exam: Present: deferred - Extremities Exam Extremities exam: Present: other (Recent amputation of right toes with small area of venous bleeding to the dorsal lateral foot) - Neurological Exam Neurological exam: Present: alert, oriented X3 - Psychiatric Psychiatric exam: Present: normal affect, normal mood - Skin Skin exam: Present: warm, dry ED Course Vital Signs 02/19/22 02/19/22 02/19/22 09:50 10:10 10:16 Temperature 97.7 F Pulse Rate 72 Respiratory 18 Rate Blood Pressure 96/62 96/62 Blood Pressure 108/71 [Right] O2 Sat by Pulse 100 83 L Oximetry 02/19/22 02/19/22 02/19/22 10:30 10:46 11:00 Temperature Pulse Rate Respiratory Rate Blood Pressure 106/62 114/64 95/61 Blood Pressure [Right] O2 Sat by Pulse 100 100 100 Oximetry ED Lower Extremity MDM - Lab Data Result diagrams: 02/19/22 11:51 02/19/22 10:20 - Medical Decision Making Hemostasis successful with application of Surgicel. Hemoglobin is 7.2. I contacted patient's motion graphics artist who reviewed patient's chart and found that his hemoglobin is essentially at baseline. States he can follow-up in clinic on Tuesday. The foot was redressed. Patient stable for discharge. Will discharge home with Rx for Blackey for pain control Critical care attestation.: If time is entered above; I have spent that time in minutes in the direct care of this critically ill patient, excluding procedure time. ED Disposition Clinical Impression: Postoperative hemorrhage, Acute postoperative pain of right foot Disposition: HOME / SELF CARE / HOMELESS Is pt being admited?: No Condition: Stable Instructions: Pain Relief Before and After Surgery Additional Instructions: Please return if you experience significant rebleeding. Your motion graphics artist has requested you to follow-up in clinic on Tuesday. Referrals: PRIMARY MD PALMIRA [Primary Care Provider] - 3-5 Days Time of Disposition: 14:57
[2022-02-20 03:35] VITALS: BP 126/69
== END 2022-02-20 03:37 | disposition home or self-care (01) ==
LOC: ED 09:42
DX: L76.22 Postprocedural hemorrhage of skin and subcutaneous tissue following other procedure (principal); G89.18 Other acute postprocedural pain
CPT/HCPCS: 36415; 80048; 80076; 82962; 85025; 96374; 96375; 99283; J2405; J3010; J7030